=== PATIENT | female | born 1995 | race Caucasian/White ===

== ENCOUNTER → 2023-10-06 15:43 | Outpatient (REF) | payer BC, SELFPAY | LOC: WDC 15:43 | PROVIDERS: ATTENDING PHYSICIAN Advanced Practice Midwife | DX: R92.8 Other abnormal and inconclusive findings on diagnostic imaging of breast (principal); N63.10 Unspecified lump in the right breast, unspecified quadrant | CPT/HCPCS: 76642 ==

== ENCOUNTER → 2023-10-10 08:28 | Outpatient (REF) | payer BC, SELFPAY ==
--- NOTE | 2023-10-10 14:52 | OID.BR.INTR ---
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
- -
Date of Contact: 10/10/23
Met with patient. Will follow up as needed per protocol.
== END ==
LOC: WDC 08:28
PROVIDERS: ATTENDING PHYSICIAN Advanced Practice Midwife; FAMILY PHYSICIAN Internal Medicine
DX: N63.13 Unspecified lump in the right breast, lower outer quadrant (principal)
CPT/HCPCS: 88305; 19083

== ENCOUNTER → 2023-11-11 10:30 | Outpatient (REF) | payer BC, SELFPAY | LOC: CLAB 10:30 | PROVIDERS: ATTENDING PHYSICIAN Surgery | DX: N63.13 Unspecified lump in the right breast, lower outer quadrant (principal) | CPT/HCPCS: 88305; 88307 ==

== ENCOUNTER → 2024-04-21 14:46 | Outpatient (REF) | payer BC, SELFPAY | LOC: WDC 14:46 | PROVIDERS: ATTENDING PHYSICIAN Surgery; FAMILY PHYSICIAN Internal Medicine | DX: N63.10 Unspecified lump in the right breast, unspecified quadrant (principal); N63.13 Unspecified lump in the right breast, lower outer quadrant | CPT/HCPCS: 76642 ==